=== PATIENT | male | born 1940 ===

== ENCOUNTER 2018-09-09 18:06 | Emergency (ER) | payer MEDICARE ==
[2018-09-09 18:17] VITALS: BP 118/86; TEMP 98
--- NOTE | 2018-09-09 19:43 | ED PDOC ---
Lower Extremity Pain/Injury Time Seen by Provider: 09/09/18 18:38 Chief Complaint (Nursing): Lower Extremity Problem/Injury Chief Complaint (Provider): Left foot pain, 1 day History Per: Patient History/Exam Limitations: no limitations Onset/Duration Of Symptoms: Days Current Symptoms Are (Timing): Still Present Additional Complaint(s): 77 yo male with no known medical problems presents for evaluation of left foot pain. Pt states it began yesterday. PT states that did not injury it. Pt states it is the entire foot. Pt did not take anything for pain. Pt states he was seen at another hospital and they discharged him. PT states no XR was completed. Past Medical History Reviewed: Historical Data, Nursing Documentation, Vital Signs Vital Signs: Last Vital Signs Temp 98.0 F 09/09/18 18:12 Pulse 116 H 09/09/18 18:12 Resp 16 09/09/18 18:12 BP 118/86 09/09/18 18:12 Pulse Ox 100 09/09/18 18:12 - Medical History PMH: No Chronic Diseases - Surgical History Surgical History: No Surg Hx - Family History Family History: States: No Known Family Hx - Living Arrangements Living Arrangements: With Family - Allergies Allergies/Adverse Reactions: Allergies Allergy/AdvReac Type Severity Reaction Status Date / Time No Known Allergies Allergy Verified 09/09/18 18:12 Review of Systems ROS Statement: Except As Marked, All Systems Reviewed And Found Negative Constitutional: Negative for: Fever, Chills Eyes: Negative for: Pain ENT: Negative for: Ear Pain, Ear Discharge Cardiovascular: Negative for: Chest Pain, Palpitations Respiratory: Negative for: Cough, Shortness of Breath Gastrointestinal: Negative for: Nausea, Vomiting, Abdominal Pain, Diarrhea Musculoskeletal: Positive for: Foot Pain Skin: Negative for: Rash, Bruising Neurological: Negative for: Weakness, Numbness, Incoordination, Change in Speech, Confusion, Seizures, Altered Mental Status, Headache, Dizziness Psych: Negative for: Anxiety, Suicidal ideation Physical Exam - Reviewed Nursing Documentation Reviewed: Yes Vital Signs Reviewed: Yes - Physical Exam Appears: Positive for: Well, Non-toxic, No Acute Distress Head Exam: Positive for: ATRAUMATIC, NORMAL INSPECTION, NORMOCEPHALIC Skin: Positive for: Normal Color, Warm, DRY Eye Exam: Positive for: Normal appearance ENT: Positive for: Normal ENT Inspection Neck: Positive for: Normal, Painless ROM Cardiovascular/Chest: Positive for: Regular Rate, Rhythm Respiratory: Positive for: Normal Breath Sounds. Negative for: Accessory Muscle Use, Respiratory Distress Back: Positive for: Normal Inspection Extremity: Positive for: Normal ROM. Negative for: Tenderness, Deformity, Swelling, Other Neurologic/Psych: Positive for: Alert, Oriented - ECG O2 Sat by Pulse Oximetry: 100 Pulse Ox Interpretation: Normal Medical Decision Making Medical Decision Making: PT states he does not want XR or medications for pain in ER. When asked what I can do for patient he states he needs something to eat and a place to sleep for awhile because he has no place to go. Disposition - Clinical Impression Clinical Impression: Foot pain, Malingering - Patient ED Disposition Is Patient to be Admitted: No Counseled Patient/Family Regarding: Diagnosis, Need For Followup - Disposition Disposition: Routine/Home Disposition Time: 19:41 Condition: GOOD Instructions: Muscle and Bone Pain (DC)
[2018-09-09 20:21] VITALS: PULSE 86; RESP 20; O2SAT 94
== END 2018-09-09 21:46 | disposition home or self-care (01) ==
LOC: H.ER 18:06
DX: Z76.5 Malingerer [conscious simulation] (principal)